=== PATIENT | male | born 1995 | race Caucasian/White ===

== ENCOUNTER 2017-09-18 19:00 | Emergency (ER) | payer BC, OTHER ==
[~2017-09-18] VITALS: Ht 188 cm; Wt 81.6 kg
[2017-09-18] MEDS ORDERED: diphenhydrAMINE 50 MG/ML INJ (BENADRYL) ONE (19:03)
[2017-09-18] MEDS ORDERED: methylPREDNISolone 125 MG (Solu-MEDROL) VIAL ONE (19:03)
[2017-09-18] MEDS ORDERED: FAMOTIDINE 20 MG (PEPCID) TABLET PO ONE (19:15)
[2017-09-18] MEDS ORDERED: RT-ALBUTEROL/IPRATROPIUM 3 ML (DUONEB) VIAL INH ONE (19:15)
--- NOTE | 2017-09-18 19:53 | ED Respiratory ---
General Chief Complaint: Allergic Reaction Stated Complaint: ALLERGIC RX/SOA Nursing Triage Note: PT PRESENTS TO ER WITH COMPLAINT OF ALLERGIC REACTION TO UNKNOWN SUBSTANCE. PT STATES HE [place] AND WAS HIS FACE WAS SWOLLEN AND HAVING DIFFICULTY BREATHING. PT STATES HE HAS ASTHMA AND HAS USED HIS ALBUTEROL INHALER. History of Present Illness Date Seen by Provider: Sep 18, 2017 Time Seen by Provider: 19:10 Initial Comments 22 year old male presents with wheezing, SOA, nasal congestion and cough. He has a history of asthma and used his albuterol 2 puffs [employer]. He denies use of any new medications, foods or other causative factors. He had a similar incident several months ago after having [employer]. Today he drank 3 [place] with [place] food. He denies any food allergies. Patient has no rash Timing/Duration: just prior to arrival Prior Episodes/Possible Cause: occasional episodes Modifying Factors: Improves With Albuterol Inhaler Associated Symptoms: nasal congestion, shortness of breath Allergies and Home Medications Allergies Coded Allergies: No Known Drug Allergies (Unverified , 09/18/17) Patient Home Medication List Home Medication List Reviewed: Yes Review of Systems Constitutional: no symptoms reported, see HPI Respiratory: see HPI, short of breath All Other Systems Reviewed Negative Unless Noted: Yes Past Sractyi-Ulkoee-Mhozwy Hx Past Med/Social Hx: Reviewed Nursing Past Med/Soc Hx Patient Social History Alcohol Use: Occasionally Uses Recreational Drug Use: No Smoking Status: Never a Smoker Recent Foreign Travel: No Contact w/Someone Who Travel: No Recent Infectious Disease Expo: No Recent Hopitalizations: No Immunizations Up To Date PED Vaccines UTD: Yes Seasonal Allergies Seasonal Allergies: Yes Past Medical History Surgeries: No Respiratory: Yes Asthma Cardiac: No Neurological: No Genitourinary: No Gastrointestinal: No Musculoskeletal: No Endocrine: No HEENT: No Cancer: No Psychosocial: No Integumentary: No Blood Disorders: No Physical Exam Vital Signs Vital Signs - First Documented 09/18/17 19:03 Pulse 97 Resp 20 B/P (MAP) 176/112 (133) Pulse Ox 94 O2 Delivery Room Air Capillary Refill : Less Than 3 Seconds General Appearance: WD/WN, no apparent distress Eyes: Bilateral Eye Normal Inspection, Bilateral Eye PERRL, Bilateral Eye EOMI HEENT: PERRL/EOMI, normal ENT inspection, TMs normal, pharynx normal, other ( clear nasal drainage) Neck: non-tender, full range of motion, supple, normal inspection Respiratory: chest non-tender, no respiratory distress, wheezing Cardiovascular: normal peripheral pulses, regular rate, rhythm Gastrointestinal: normal bowel sounds, non tender, soft Neurologic/Psychiatric: no motor/sensory deficits, alert, normal mood/affect, oriented x 3 Skin: normal color, warm/dry Progress/Results/Core Measures Suspected Sepsis Recent Fever Within 48 Hours: No Infection Criteria Present: None New/Unexplained Altered Menta: No Sepsis Screen: No Definite Risk SIRS Temperature: Pulse: 97 Respiratory Rate: 20 Blood Pressure 176 /112 Mean: 133 Results/Orders My Orders Orders - CAYLA DAMICO Rt Request For Service (Other) (09/18/17 19:14) Albuterol/Ipra Inhalation Soln (Duoneb I (09/18/17 19:15) Famotidine Tablet (Pepcid Tablet) (09/18/17 19:15) Svn Small Volume Nebulizer (09/18/17 19:14) Medications Given in ED Current Medications Medications Dose Ordered Sig/Laura Route Start Time Stop Time Status Last Admin Dose Admin Albuterol/ Ipratropium 3 ml ONCE ONCE INH 09/18/17 19:15 09/18/17 19:16 DC 09/18/17 19:22 3 ML Diphenhydramine HCl 50 mg STK-MED ONCE .ROUTE 09/18/17 19:03 09/18/17 19:08 DC 09/18/17 19:15 50 MG Famotidine 20 mg ONCE ONCE PO 09/18/17 19:15 09/18/17 19:16 DC 09/18/17 19:22 20 MG Methylprednisolone Sodium Succinate 125 mg STK-MED ONCE .ROUTE 09/18/17 19:03 09/18/17 19:08 DC 09/18/17 19:15 125 MG Vital Signs/I&O 09/18/17 09/18/17 09/18/17 19:03 19:22 20:08 Pulse 97 97 Resp 20 20 B/P (MAP) 176/112 (133) 160/99 (133) Pulse Ox 94 97 97 O2 Delivery Room Air Room Air Room Air Capillary Refill : Less Than 3 Seconds Blood Pressure Mean: 133 Progress Note : Time: 19:10 Progress Note Initial evaluation completed, recommended Solu-Medrol 120 mg IV and Benadryl 50 mg IV. Will consult respiratory therapy for DuoNeb treatment. 1944 patient reports in improved shortness of air, less audible wheezing, no rash. 1999 patient reports be feeling much better, lungs clear to auscultation bilaterally, no respiratory distress. Discharge instructions and return precautions reviewed with patient in detail. Departure Impression Primary Impression: Asthma attack Qualified Codes: J45.21 - Mild intermittent asthma with (acute) exacerbation Disposition: HOME, SELF-CARE Condition: Improved Departure-Patient Inst. Decision time for Depature: 19:50 Referrals: UNKNOWN (PCP/Family) Primary Care Physician Patient Instructions: Asthma, Adult (DC), Seasonal Allergies (DC) Add. Discharge Instructions: Continue taking your [place] daily. Use your albuterol inhaler 2 puffs every 4 hours, wait 5 minutes between puffs. You may take Benadryl 25 mg every 8 hours as needed. Avoid any alcohol for the next 6-8 hours. Return to emergency department for difficulty breathing, wheezing, rash, or other concerns. All discharge instructions reviewed with patient and/or family. Voiced understanding. CAYLA DAMICO Sep 18, 2017 19:53
[2017-09-18 20:08] VITALS: BP 160/99
== END 2017-09-18 20:08 | disposition home or self-care (01) ==
LOC: ER 19:03
DX: J45.901 Unspecified asthma with (acute) exacerbation (principal)
CPT/HCPCS: 94640; 96372; 99283